=== PATIENT | female | born 1970 | race Caucasian/White ===

== ENCOUNTER 2021-04-06 15:30 | Emergency (ER) | payer OTHER ==
[~2021-04-06] VITALS: Ht 165.1 cm; Wt 88.3 kg
[2021-04-06 15:52] VITALS: BP 231/95
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
[2021-04-06] MEDS ORDERED: DIPH,PERTUSS(ACELL),TET VAC/PF 0.5 ML SYRINGE. VAX IM ONE (16:21)
[2021-04-06] MEDS: DIPH,PERTUSS(ACELL),TET VAC/PF 0.5 ML SYRINGE. VAX IM ONE (16:24)
== END 2021-04-06 16:29 | disposition home or self-care (01) ==
LOC: ER 15:30
DX: S51.851A Open bite of right forearm, initial encounter (principal); Z88.5 Allergy status to narcotic agent; Y04.1XXA Assault by human bite, initial encounter; Y93.89 Activity, other specified; Y92.89 Other specified places as the place of occurrence of the external cause; Y99.8 Other external cause status
CPT/HCPCS: 90471; 90715; 99283-25